=== PATIENT | male | born 1930 | race Caucasian/White ===

== ENCOUNTER 2018-12-13 23:38 | Inpatient (IN) ==
[2018-12-14 01:47] LABS: HEMOGLOBIN 13.2 g/dL (14.0-18.0); RBC 4.27 XMIL (4.7-6.1); WBC 13.63 X1000 (4.8-10.8)
[2018-12-14 01:48] LABS: BASO# 0.01 X1000 (0.0-0.2); BASO% 0.1 % (0.0-0.8); EOS# 0.09 X1000 (0.0-0.7); EOS% 0.7 % (0.0-10.0); HEMATOCRIT 40.4 % (42.0-52.0); IMM GRAN# 0.06 X1000 (0.0-0.04); IMM GRAN% 0.4 % (0.0-0.5); LYMPH# 0.72 X1000 (1.2-3.4); LYMPH% 5.3 % (20.5-51.1); MCH 30.9 PG (27-31); MCHC 32.7 g/dL (33-37); MCV 94.6 FL (81-99); MONO# 1.43 X1000 (0.11-0.59); MONO% 10.5 % (1.7-9.3); MPV 10.2 FL (7.4-10.4); NEUT# 11.32 X1000 (1.4-6.5); PLT 160 X1000 (130-400); RDW 14.5 % (11.5-14.5)
--- NOTE | 2018-12-14 02:11 | PROVIDER DOCUMENTATION ---
This chart was entered by Sherice Bridges Scribe, acting as scribe for Kalie Walker MD. HPI-General Adult - History of Present Illness -Gen Adult Nature of Presenting Problems: At recheck pt notes that he has had hx of hospitalizations due to uti's and weakness. <CjMiles Traylor. - Last Filed: 12/14/18 03:48> - General Source: patient - History of Present Illness -Gen Adult Nature of Presenting Problems: pt is a 88 yr old male presenting post fall via EMS. per pt had ambulated to bathroom with his walker, after using bathroom pt was trying to return to bedroom and was unable to ambulate further. pt reports his legs just wouldn't work and he sank to the floor, pt denies fall or injury. pt hx of myasthenia gravis, dementia. pt denies any complaints. family reports he was to weak to get up with there assistance Location of Pain/Injury: reports: none Pain Radiation: reports: no radiation Quality of Pain: reports: none Onset/Duration: reports: just prior to arrival Timing: reports: improving Context/Activities at Onset: reports: light activity Modifying Factors: improves with: nothing Associated Symptoms: reports: weakness, trouble walking. denies: arm pain, back/neck pain, chest pain, headaches, shortness of breath Similar Symptoms Previously?: Yes Recently seen or treated by another doctor?: No <Kalie Barrow - Last Filed: 12/14/18 14:01> - General Chief Complaint: Fall Stated Complaint: fall Time Seen by Provider: 12/14/18 00:10 Allergies/Adverse Reactions: Patient Allergies Allergy/AdvReac Type Severity Reaction Status Date / Time No Known Allergies Allergy Verified 12/14/18 06:28 Home Medications: Home Medication List Medication Instructions Recorded Confirmed Last Taken Type ATORVAstatin [Lipitor] 20 mg PO QHS #0 tablet 03/08/12 12/14/18 04/09/18 Rx Amitriptyline HCl 25 mg PO QHS 01/12/17 12/14/18 04/09/18 History Hydrochlorothiazide 25 mg PO DAILY 03/10/18 12/14/18 04/10/18 History Prednisone 10 mg PO DAILY tablet 03/14/18 12/14/18 04/10/18 Rx Pyridostigmine [Mestinon] 90 mg PO TID tablet 03/14/18 12/14/18 04/10/18 Rx Tolterodine Tartrate [Tolterodine 4 mg PO DAILY 12/14/18 12/14/18 Unknown History Tartrate ER] Review of Systems - Adult - REVIEW OF SYSTEMS - ADULT Constitutional: reports: fatique Eyes: reports: no symptoms reported Ears, Nose, Mouth & Throat: reports: no symptoms reported Cardiovascular: denies: chest pain, palpitations, syncope Respiratory: denies: dyspnea on exertion, shortness of breath Gastrointestinal: reports: no symptoms reported Genitourinary: reports: no symptoms reported Musculoskeletal: denies: bone pain, back pain, joint swelling, neck pain Integumentary: reports: no symptoms reported Neurological: denies: dizziness/vertigo, headache/migraines, syncope Psychiatric: reports: no symptoms reported Endocrine: reports: no symptoms reported Hematologic/Lymphatic: reports: no symptoms reported Allergic/Immunologic: reports: no symptoms reported All Other Systems: Reviewed and Negative <Kalie Barrow - Last Filed: 12/14/18 14:01> Past History - Adult - PAST MEDICAL HISTORY-ADULT Review of Records: reports: Old Records Reviewed, Nursing Assessment Review, Medications Reviewed, Social history reviewed & non-contributory. Major Childhood Illnesses: reports: denies history Cardiovascular: reports: HTN, hyperlipidemia, murmur Respiratory: reports: asthma Gastrointestinal: reports: GERD Obstetrical/Gynecological: reports: denies history Genitourinary: reports: denies history Musculoskeletal: reports: other (myasthenia gravis) Neurological: reports: dementia Psychiatric: reports: denies history Endocrine/Immune: reports: other (myasthenia gravis) Other Conditions: reports: denies history - PRIOR SURGERIES/PROCEDURES Surgical/Procedure History: reports: joint replacement - IMMUNIZATION STATUS Childhood Immunizations: See Nurse Assessment Flu Vaccine: See Nurse Assessment - FAMILY HISTORY Family History: reviewed, not pertinent - SOCIAL HISTORY Smoking: denies Substance Use: denies Living Situation: family <Kalie Barrow - Last Filed: 12/14/18 14:01> Physical Exam-General - CONSTITUTIONAL General Appearance: alert, no apparent distress - NECK Neck: non-tender, full range of motion, supple - RESPIRATORY Respiratory: lungs clear, normal breath sounds - GASTROINTESTINAL (ABDOMEN) Abdominal Exam: normal bowel sounds, non tender, soft - MUSCULOSKELETAL Back Exam: no CVA tenderness, no vertebral tenderness Extremity: normal range of motion, non-tender - NEUROLOGIC Neurologic: statistics manager II-XII nml as tested, motor weakness (+4/5 B/L LE), negative romberg's sign. negative: abnormal cerebellar tests, facial droop, focal weakness - PSYCHIATRIC Psych/Mental Status: other (oriented to place person but not to time.) <Kalie Barrow - Last Filed: 12/14/18 14:01> Progress - PLAN OF CARE/RESULTS Progress/Plan/Lab Results: Vital Signs - 8 hr 12/14/18 00:08 12/14/18 00:33 12/14/18 00:37 Temperature 102.4 F H Pulse Rate 99 H 90 Respiratory Rate 20 19 Blood Pressure 118/67 124/66 118/67 O2 Sat by Pulse Oximetry 95 94 L 95 12/14/18 01:03 12/14/18 01:32 Temperature 100.3 F H Pulse Rate 104 H 103 H Respiratory Rate 20 23 Blood Pressure 112/64 104/77 O2 Sat by Pulse Oximetry 95 95 Laboratory Results - last 24 hr 12/14/18 12/14/18 12/14/18 01:33 01:33 01:33 WBC 13.63 H RBC 4.27 L Hgb 13.2 L Hct 40.4 L MCV 94.6 MCH 30.9 MCHC 32.7 L RDW Std Deviation 14.5 Plt Count 160 MPV 10.2 Immature Gran % (Auto) 0.4 Neut % (Auto) 83.0 H Lymph % (Auto) 5.3 L [place] % (Auto) 10.5 H Eos % (Auto) 0.7 Baso % (Auto) 0.1 Immature Gran # (Auto) 0.06 H Neut # (Auto) 11.32 H Lymph # (Auto) 0.72 L [place] # (Auto) 1.43 H Eos # (Auto) 0.09 Baso # (Auto) 0.01 Sodium 143 Potassium 3.2 L Chloride 103 Carbon Dioxide 29 Anion Gap 11 BUN 18 Creatinine 1.3 H Estimated GFR/1.73 m2 52 BUN/Creatinine Ratio 14 Glucose 87 Calculated Osmolality 286 Calcium 8.8 Troponin T 0.047 Urine Source Urine Color Urine Turbidity Urine pH Ur Specific [place] Urine Protein Ur Glucose (Stick) Ur Ketones (Stick) Urine Blood Urine Nitrite Urine Bilirubin Urobilinogen Dipstick Urine Leukocytes Urine WBC (Auto) Urine RBC (Auto) U Epithel Cells (Auto) Urine Bacteria (Auto) Urine Crystals Small Round Cells Urine Casts Urine Yeast-like Cells 12/14/18 03:15 WBC RBC Hgb Hct MCV MCH MCHC RDW Std Deviation Plt Count MPV Immature Gran % (Auto) Neut % (Auto) Lymph % (Auto) [place] % (Auto) Eos % (Auto) Baso % (Auto) Immature Gran # (Auto) Neut # (Auto) Lymph # (Auto) [place] # (Auto) Eos # (Auto) Baso # (Auto) Sodium Potassium Chloride Carbon Dioxide Anion Gap BUN Creatinine Estimated GFR/1.73 m2 BUN/Creatinine Ratio Glucose Calculated Osmolality Calcium Troponin T Urine Source CATH Urine Color YELLOW Urine Turbidity HAZY Urine pH 6.5 Ur Specific [place] 1.018 Urine Protein 30 A Ur Glucose (Stick) NEGATIVE Ur Ketones (Stick) NEGATIVE Urine Blood SMALL A Urine Nitrite POSITIVE A Urine Bilirubin NEGATIVE Urobilinogen Dipstick NORMAL Urine Leukocytes LARGE A Urine WBC (Auto) TNTC A Urine RBC (Auto) <10 U Epithel Cells (Auto) <10 Urine Bacteria (Auto) 4+ Urine Crystals NONE SEEN Small Round Cells NONE SEEN Urine Casts NONE SEEN Urine Yeast-like Cells PRESENT Orders Category Date Time Status cxr [CHEST-PORTABLE] [RAD] Stat Exams 12/14/18 00:48 Taken BMP [BASIC METABOLIC PANEL] [CHEM] Stat Lab 12/14/18 01:33 Completed CBC WITH ELECTRONIC DIFF [HEME] Stat Lab 12/14/18 01:33 Completed TROPONIN T Stat Lab 12/14/18 01:33 Completed URINALYSIS [URINALYSIS] Stat Lab 12/14/18 03:15 Completed URINE MANUAL MICROSCOPIC [URINALYSIS] Stat Lab 12/14/18 03:15 Completed EKG [EKG] Stat Ther 12/14/18 00:47 Ordered Result Diagrams: 12/14/18 01:33 12/14/18 01:33 - CONSULTS/PCP/HOSPITALIST Notification #1 *Consult/PCP/Hospitalist*: Dr Dee Time Discussed: 03:49 Consult Disposition: Will see in ED, Admit <Miles Corona - Last Filed: 12/14/18 03:48> - PLAN OF CARE/RESULTS Result Diagrams: 12/14/18 01:33 12/14/18 01:33 - CHANGE OF SHIFT REPORT (ED Provider) 1 Report Given and Care Transferred to:: Dr. Miles Corona Time of Transfer: 02:10 Items Pending: Labs (Hx, PE and patient care discussed.) <Kalie Barrow - Last Filed: 12/14/18 14:01> Departure - Departure Date of Disposition Decision: 12/14/18 Time of Disposition Decision: 03:49 Certified Medical Emergency: Emergent - Critical Care Note This patient required my direct & personal management of CC.: No <Miles Corona - Last Filed: 12/14/18 03:48> <Kalie Barrow - Last Filed: 12/14/18 14:01> - Departure DIAGNOSIS: Weakness, UTI (urinary tract infection) Fall Qualifiers: Encounter type: initial encounter Qualified Code(s): W19.XXXA - Unspecified fall, initial encounter Disposition: ADMITTED INPATIENT 09 Condition: Fair Attestation - Physician/ MAYE Attestation Patient care was provided by Advanced Practice Provider:: No The physician spent face to face time with patient:: Yes Advanced Practice Provider documentation review:: Supervising physician onsite and consulted in the evaluation and care of this patient. The physician did have a face to face encounter with the patient. <Miles Corona - Last Filed: 12/14/18 03:48> - Physician/ MAYE Attestation Patient care was provided by Advanced Practice Provider:: No The physician spent face to face time with patient:: Yes Advanced Practice Provider documentation review:: Supervising physician onsite and consulted in the evaluation and care of this patient. The physician did have a face to face encounter with the patient. <Kalie Barrow - Last Filed: 12/14/18 14:01> This chart was documented by the indicated scribe, (Sherice Bridges Scribe) and accurately reflects the services I performed and decisions made by me, Kalie Walker MD, as attested by the provider's signature.
[2018-12-14 02:19] LABS: CALCIUM 8.8 mg/dL (8.8-10.2); CREATININE 1.3 mg/dL (0.7-1.2); POTASSIUM 3.2 mmol/L (3.5-5.1)
[2018-12-14 03:29] LABS: URINE SOURCE CATH
[2018-12-14 03:31] LABS: BILIRUBIN URINE NEGATIVE (NEGATIVE); BLOOD URINE SMALL (NEGATIVE); COLOR YELLOW; GLUCOSE URINE NEGATIVE (NEGATIVE); KETONE URINE NEGATIVE (NEGATIVE); LEUKOCYTES URINE LARGE (NEGATIVE); NITRITE URINE POSITIVE (NEGATIVE); PH URINE 6.5; PROTEIN URINE 30 mg/dL (NEGATIVE); SP GRAVITY URINE 1.018; TURBIDITY URINE HAZY (CLEAR); UROBILINOGEN URINE NORMAL (NORMAL)
[2018-12-14 03:34] LABS: UR EPITHELIAL CELLS <10 /HPF (<10); URINE BACTERIA 4+ /HPF; URINE CASTS NONE SEEN; URINE CRYSTALS NONE SEEN; URINE RBC <10 /HPF (<10); URINE SMALL ROUND CELLS NONE SEEN; URINE WBC TNTC /HPF (<10); URINE YEAST PRESENT
--- NOTE | 2018-12-14 08:38 | Diag Imaging Result Doc PS360 ---
EXAM: CHEST-PORTABLE INDICATION: Fall TECHNIQUE: One view COMPARISON: 04/10/2018 FINDINGS: Inspiration is suboptimal. There is suggestion of mild subsegmental atelectasis at the lung bases. The lungs are grossly clear, otherwise. There is no significant pleural fluid collection or pneumothorax identified. The cardiomediastinal silhouette and central vasculature are grossly unremarkable. IMPRESSION: Low lung volumes and mild bibasilar subsegmental atelectasis. No definite acute chest pathology by plain radiograph, otherwise. Electronically signed by Hiren Huerta 12/14/2018 8:35 AM
[2018-12-14] MEDS: NS 1,000 ML IV SCH ×2 (08:53→18:08)
[2018-12-14] MEDS: ROCEPHIN 1 GM in NS 50 ML IV SCH (08:53)
--- NOTE | 2018-12-14 11:47 | Diag Imaging Result Doc PS360 ---
EXAM: CT HEAD W/O CONTRAST INDICATION: encephalopathy TECHNIQUE: This exam was performed using automated exposure control, adjustment of mA or kV according to patient size, and/or use of iterative reconstruction technique. COMPARISON: 03/07/2012 FINDINGS: There is stable diffuse brain atrophy. There is a small focus of low attenuation associated with the superior thalamus on the left (image 22 of series 2). This could represent partial volume averaging from the adjacent ventricle. However, it is not clearly identified on the previous study. It may also represent a chronic lacunar infarct. However, a subacute infarct cannot completely be excluded. Please correlate clinically. There is no evidence of acute infarct, otherwise. There is no discrete intracranial mass, mass effect, or intracranial hemorrhage. There are a few small ethmoid sinus and left maxillary sinus mucus retention cyst. Surrounding soft tissues and bony structures are essentially unremarkable, otherwise. IMPRESSION: 1.Small hypodense focus at the superior aspect of the left thalamus. Please see above discussion. 2.Stable brain atrophy. Electronically signed by Hiren Huerta 12/14/2018 11:45 AM
--- NOTE | 2018-12-14 14:03 | HISTORY AND PHYSICAL ---
PRIMARY CARE PHYSICIAN: Dr. Miah Bedolla CHIEF COMPLAINT: Weakness, fall. HISTORY OF PRESENTING ILLNESS: An 88-year-old male with a history of myasthenia gravis,, hypertension hyperlipidemia and dementia, was brought to the emergency department due to patient having a fall. As per family members, he was getting weak and his legs gave out. The patient is a poor historian and most of the history is obtained from family members and previous records. At time of my examination, patient was able to deny any headache, fever, chills, chest pain, shortness of breath or any weight changes. PAST MEDICAL HISTORY: Includes myasthenia gravis, hypertension, hyperlipidemia and dementia. PAST SURGICAL HISTORY: Right knee surgery. ALLERGIES: No known drug allergies. CURRENT MEDICATIONS: Include amitriptyline 25 mg p.o. at bedtime, atorvastatin 20 mg p.o. at bedtime, hydrochlorothiazide 25 mg p.o. daily, omeprazole 40 mg p.o. daily, prednisone 10 mg p.o. daily. Mestinon 90 mg p.o. t.i.d. SOCIAL HISTORY: He smoked cigars in the past. No history of alcohol or illicit drug use. FAMILY HISTORY: No history of coronary disease. REVIEW OF SYSTEMS: Fourteen point review of system as listed in HPI. Other systems negative. PHYSICAL EXAMINATION: GENERAL: Cooperative, friendly male. He is resting comfortably now. VITAL SIGNS: Temperature of 102.4 degrees, pulse 90, respirations 19, blood pressure 118/67. HEENT: Atraumatic, normocephalic. Extraocular movements intact. PERRLA. NECK: No masses. CHEST: Clear to auscultation. CARDIOVASCULAR: Regular rate and rhythm. ABDOMEN: Soft,x positive bowel sounds. EXTREMITIES: No edema. NEUROLOGIC: He is awake, alert, oriented x1. GENITOURINARY: No bladder distention. SKIN: Warm. LABORATORIES AND STUDIES: WBC 13.63 hemoglobin 13.2, hematocrit 40.4, platelets 160,000. Sodium 143 potassium 3.2, chloride 103, CO2 is 29, BUN is 18, creatinine is 1.3, glucose is 87. UA shows large leukocytes and +4 bacteria. ASSESSMENT: An 88-year-old male with a history of myasthenia gravis, hypertension, dementia and hyperlipidemia was brought to the emergency department due to patient having a fall and worsening weakness. He was evaluated in the emergency department. Due to his presenting symptoms, we will place him for observation for further evaluation and management. 1. Status post fall. 2. Generalized weakness. 3 .Myasthenia gravis 3. Suspect a urinary tract infection. 4. Hypertension. PLAN: 1. We will admit patient to medical floor with telemetry. 2. We will continue with supportive treatment with physical therapy consult. 3. We will check urine cultures. Start patient on empiric antibiotics. 4. Monitor blood pressure closely. 5. Put patient on deep venous thrombosis prophylaxis with SCDs. 6. We will continue to follow and reassess and make further recommendations based on patient's clinical course. cc: MD Navjot Michele MD MTDD
[2018-12-14] MEDS: MESTINON PO SCH ×4 (15:59→21:32)
[2018-12-14] MEDS: PREDNISONE PO SCH (16:01)
--- NOTE | 2018-12-14 16:39 | PROGRESS NOTE ---
DATE: 12/14/2018 SUBJECTIVE: The patient's chart was reviewed. Unfortunately, history and physical has not been transcribed and history is limited from the patient secondary to mental status changes. I attempted to contact patient's , although no one answered the phone at her and her 's home. Per verbal report, patient apparently had a fall yesterday evening. The patient was seen in the emergency department. Full evaluation was pursued. White blood cell count was noted to be elevated at 13.63. Urinalysis returned with too many to count white blood cells and 4+ bacteria. The patient was admitted and placed on IV antibiotic intervention. This morning, CT scan of the head was performed which revealed a small hypodense focus at the superior aspect of the left thalamus possibly representing a new subacute stroke. Upon my arrival, patient was conversant but confused. He was aware of his surroundings but was unable to remember my name. His vital signs have been stable overnight. There has been no evidence of fevers, chills, nausea, vomiting, shortness of breath, or chest discomfort. OBJECTIVE: T-max 102.4 degrees, heart rate 82 to 107, respirations 16 to 22, blood pressure 89 to 133 over 63 to 75.General: Well nourished, well developed, no acute distress. Cardiovascular: Regular rate and rhythm. No significant murmurs, rubs, or gallops. Pulmonary: Clear to auscultation bilaterally. Abdomen: Soft, nontender, nondistended. Positive bowel sounds. Extremities: Moves all extremities well. No significant clubbing, cyanosis, or edema. Dermatologic: Evaluation reveals no evidence of rash. LABORATORY DATA: None since admission. ASSESSMENT AND PLAN: 1. Urinary tract infection with associated leukocytosis-patient's previous cultures have been positive for Pseudomonas. In April, this was sensitive to ceftazidime. The patient was started on IV ceftriaxone. We will continue this for now. We will follow up culture data. 2. Alteration of mental status/metabolic encephalopathy-this certainly could be secondary to his underlying urinary tract infection. The patient's CT scan, however, did demonstrate a possible subacute infarct. We will treat patient with IV antibiotics as noted. We will consider MRI of the brain depending on patient's progress. 3. Abnormal CT scan with a small hypodense focus at the superior aspect of the left thalamus-at this point, we are unable to confirm whether this represents a subacute infarct or volume averaging. We will follow patient clinically and determine if MRI evaluation is appropriate. 4. Hypertension-the patient's blood pressure was slightly low upon admission. We will hold any antihypertensive agents. We will follow this as well. 5. Hyperlipidemia-we will continue patient on atorvastatin therapy. 6. Myasthenia gravis-we will continue Mestinon and prednisone therapy as his symptoms are stable. 7. Disposition-at this point, patient continues to require care home care in a hospital setting. We will plan discharge home once appropriate. cc: Navjot Bedolla MD
[2018-12-14] MEDS: ELAVIL PO SCH (21:32)
[2018-12-14] MEDS: LIPITOR PO SCH (21:33)
[2018-12-15] MEDS: NS 1,000 ML IV SCH (04:02)
[2018-12-15] MEDS: PRILOSEC PO SCH (06:26)
[2018-12-15 06:42] LABS: BASO# 0.01 X1000 (0.0-0.2); BASO% 0.1 % (0.0-0.8); EOS% 1.7 % (0.0-10.0); HEMATOCRIT 39.7 % (42.0-52.0); HEMOGLOBIN 12.9 g/dL (14.0-18.0); IMM GRAN# 0.04 X1000 (0.0-0.04); IMM GRAN% 0.3 % (0.0-0.5); LYMPH# 0.98 X1000 (1.2-3.4); LYMPH% 8.3 % (20.5-51.1); MCH 31.3 PG (27-31); MCHC 32.5 g/dL (33-37); MCV 96.4 FL (81-99); MONO# 0.61 X1000 (0.11-0.59); MONO% 5.1 % (1.7-9.3); MPV 10.2 FL (7.4-10.4); NEUT# 10.01 X1000 (1.4-6.5); NEUT% 84.5 % (42.2-75.2); PLT 144 X1000 (130-400); RBC 4.12 XMIL (4.7-6.1); RDW 14.5 % (11.5-14.5); WBC 11.85 X1000 (4.8-10.8)
[2018-12-15 07:01] LABS: CALCIUM 8.8 mg/dL (8.8-10.2); CREATININE 1.3 mg/dL (0.7-1.2); POTASSIUM 3.9 mmol/L (3.5-5.1)
[2018-12-15] MEDS: ROCEPHIN 1 GM in NS 50 ML IV SCH (10:29)
[2018-12-15] MEDS: MESTINON PO SCH ×4 (10:31→21:58)
[2018-12-15] MEDS: PREDNISONE PO SCH (10:32)
[2018-12-15] MEDS: LOVENOX SUBQ SCH (15:40)
--- NOTE | 2018-12-15 21:21 | PROGRESS NOTE ---
DATE: 12/15/2018 SUBJECTIVE: Over the course of the last 24 hours, patient states he has done reasonably well. The patient has been working with physical therapy. His energy level is improving. His p.o. intake is adequate. He continues to have some confusion, although this has improved somewhat. There has been no evidence of fevers, chills, nausea, vomiting, shortness of breath, or chest discomfort. OBJECTIVE: T-max 102.4 degrees, heart rate 65 to 111, respirations 14 to 20. Blood pressure 96 to 159 over 60 to 101.General: No acute distress. Cardiovascular: Regular rate and rhythm. No significant murmurs, rubs, or gallops. Pulmonary: Clear to auscultation bilaterally. Abdomen: Soft, nontender, nondistended. Positive bowel sounds. Extremities: Moves all extremities well. No significant clubbing, cyanosis, or edema. Dermatologic: Evaluation reveals no evidence of rash. LABORATORY DATA: White blood cell count 11.85, hemoglobin 12.9, hematocrit 39.7, platelet count 144,000, sodium 143, potassium 3.9, chloride 108, bicarb 24, BUN 20, creatinine 1.3, glucose 92. ASSESSMENT AND PLAN: 1. Urinary tract infection with associated leukocytosis-we will continue patient on Rocephin therapy. We will culture urine. 2. Alteration of mental status/metabolic encephalopathy-this likely was a consequence of his urinary tract infection. CT scan of the head, however, demonstrated possible subacute infarct. We will continue to treat patient aggressively as described above. Should his condition not completely resolve, we will consider an MRI of the brain. 3. Abnormal CT scan with small hyperdense focus in the superior aspect of the left thalamus-as above, question is raised whether this is a true abnormality or if this is volume averaging. We will consider an MRI as noted. 4. Hypertension-we will continue patient on his home regimen. 5. Hyperlipidemia-we will continue atorvastatin therapy. 6. Myasthenia gravis-we will continue patient on Mestinon and prednisone therapy. 7. Disposition-at this point, patient continues to require [facility] care in a hospital setting. We will plan discharge home once appropriate. cc: Navjot Bedolla MD
[2018-12-15] MEDS: LIPITOR PO SCH (21:59)
[2018-12-15] MEDS: ELAVIL PO SCH (21:59)
[2018-12-16 06:13] LABS: BASO# 0.01 X1000 (0.0-0.2); BASO% 0.1 % (0.0-0.8); EOS% 3.6 % (0.0-10.0); HEMATOCRIT 40.1 % (42.0-52.0); IMM GRAN# 0.06 X1000 (0.0-0.04); IMM GRAN% 0.7 % (0.0-0.5); LYMPH# 0.76 X1000 (1.2-3.4); LYMPH% 9.1 % (20.5-51.1); MCH 31.3 PG (27-31); MCHC 32.4 g/dL (33-37); MCV 96.4 FL (81-99); MONO# 0.62 X1000 (0.11-0.59); MONO% 7.4 % (1.7-9.3); NEUT% 79.1 % (42.2-75.2); PLT 159 X1000 (130-400); RBC 4.16 XMIL (4.7-6.1); RDW 14.4 % (11.5-14.5); WBC 8.35 X1000 (4.8-10.8)
[2018-12-16] MEDS: PRILOSEC PO SCH (06:32)
[2018-12-16] MEDS: MESTINON PO SCH ×4 (09:00→20:03)
[2018-12-16] MEDS: ROCEPHIN 1 GM in NS 50 ML IV SCH (09:00)
[2018-12-16] MEDS: PREDNISONE PO SCH (09:01)
--- NOTE | 2018-12-16 10:43 | Diag Imaging Result Doc PS360 ---
MRI BRAIN W/WO CONTRAST - 12/16/2018 INDICATION: abnormal CT brain/ AMS COMPARISON: Head CT 12/14/2018, brain MRI 01/15/2013 FINDINGS: There is no area of restricted diffusion. There is a dilated perivascular space of the left basal ganglia stable from prior exams. There is advanced diffuse cerebral atrophy similar to prior. No intracranial mass or hemorrhage. No abnormal contrast enhancement. There is very little chronic microvascular disease. IMPRESSION: Advanced cerebral atrophy. No acute process. Electronically signed by Elian Cleveland 12/16/2018 10:40 AM
[2018-12-16] MEDS: LOVENOX SUBQ SCH (15:38)
[2018-12-16] MEDS: LIPITOR PO SCH (20:01)
[2018-12-16] MEDS: ELAVIL PO SCH (20:02)
--- NOTE | 2018-12-16 21:30 | PROGRESS NOTE ---
DATE: 12/16/2018 SUBJECTIVE: The patient was originally seen this morning. At that time, he was resting in bed. Through the day today, patient states he has done well. His appetite is excellent. The energy level is slowly improving. He continues to work with physical therapy. His confusion has not resolved, but is improving. He denies fevers, chills, nausea, vomiting, shortness of breath, or chest discomfort. OBJECTIVE: Vital Signs: T-max 98.2 degrees, heart rate 52 to 92, respirations 16 to 18, blood pressure 119 to 152 over 63 to 116. General: No acute distress. Cardiovascular: Regular rate and rhythm. No significant murmurs, rubs, or gallops. Pulmonary: Clear to auscultation bilaterally. Abdomen: Soft, nontender, nondistended. Positive bowel sounds. Extremities: Moves all extremities well. No significant clubbing or cyanosis. 1+ lower extremity edema bilaterally. Dermatologic: Evaluation reveals no evidence of rash. LABORATORY DATA: White blood cell count 8.35, hemoglobin 14.3, hematocrit 40.1, platelet count 159,000. MRI of the brain revealed advanced cerebral atrophy. No acute process. ASSESSMENT AND PLAN: 1. Urinary tract infection, with associated leukocytosis: Patient's leukocytosis has resolved. Urine culture, thus far, suggests a gram-negative milagros. For now, we will continue Rocephin therapy as it appears patient is clinically improved. We will follow up culture data and determine when transition to oral antibiotic intervention is appropriate. 2. Alteration of mental status/metabolic encephalopathy: This likely is a consequence of his urinary tract infection. As above, MRI did not confirm an acute stroke as suggested by CT scan. We will continue treatment as noted. 3. Hypertension: Patient's blood pressure is reasonably controlled on his home regimen. 4. Hyperlipidemia: We will continue atorvastatin therapy. 5. Myasthenia gravis: We will continue Mestinon and prednisone therapy. Symptoms are stable. 6. Disposition: At this point, patient continues to require [facility] care in a hospital setting. We will plan discharge home once appropriate. cc: Navjot Bedolla MD
[2018-12-17] MEDS: ROCEPHIN 1 GM in NS 50 ML IV SCH (06:29)
[2018-12-17] MEDS: PRILOSEC PO SCH (06:29)
[2018-12-17] MEDS: MESTINON PO SCH ×3 (08:39→22:12)
[2018-12-17] MEDS: PREDNISONE PO SCH (08:39)
[2018-12-17] MEDS: LOVENOX SUBQ SCH (12:42)
--- NOTE | 2018-12-17 21:12 | PROGRESS NOTE ---
DATE: 12/17/2018 SUBJECTIVE: Upon my arrival this morning, patient was resting in bed. Overnight, he denied significant symptoms. Throughout the day today, the patient has demonstrated significant improvement in his overall condition. The patient ambulated with physical therapy. I have asked social sciences department chair discuss case with patient's . Home health versus rehabilitation were considered. Upon my arrival this evening, patient's states he has done so well, she would like to consider taking home tomorrow. The patient states he is feeling well and denies fevers, chills, nausea, vomiting, shortness of breath, or chest discomfort. OBJECTIVE: T-max 98.5 degrees, heart rate 57 to 82, respirations 18 to 24, blood pressure 123 to 174 over 63 to 89.General: No acute distress. Cardiovascular: Regular rate and rhythm. No significant murmurs, rubs, or gallops. Pulmonary: Clear to auscultation bilaterally. Abdomen: Soft, nontender, nondistended. Positive bowel sounds. Extremities: Moves all extremities well. No significant clubbing, cyanosis, 1+ lower extremity edema bilaterally. Dermatologic: Evaluation reveals no evidence of rash. LABORATORY DATA: None. ASSESSMENT/PLAN: 1. Urinary tract infection with associated leukocytosis-urine culture ultimately grew Escherichia coli. We will continue Rocephin therapy until discharge. We will transition patient to oral antibiotics for a total of 2 weeks. We will follow this closely as an outpatient. 2. Alteration of mental status/metabolic encephalopathy-this likely is a consequence of his urinary tract infection. MRI suggested diffuse cerebral atrophy but no acute disease. We will continue supportive care for now. 3. Hypertension-patient's blood pressure is controlled on his current regimen. 4. Hyperlipidemia-we will continue patient on atorvastatin therapy. 5. Myasthenia gravis-symptoms are reasonably controlled with Mestinon and prednisone therapy. 6. Disposition-at this point, patient continues to require residential care in a hospital setting. We will plan discharge home once appropriate. cc: Navjot Bedolla MD
[2018-12-17] MEDS: LIPITOR PO SCH (22:12)
[2018-12-17] MEDS: ELAVIL PO SCH (22:13)
[2018-12-17] MEDS ORDERED: DUONEB (A & A) INH ONE (23:08)
[2018-12-18] MEDS: LOVENOX SUBQ SCH ×2 (04:46→14:34)
[2018-12-18] MEDS ORDERED: DUONEB (A & A) INH SCH (07:50)
[2018-12-18] MEDS: DUONEB (A & A) INH SCH ×4 (08:02→19:22)
--- NOTE | 2018-12-18 08:34 | Diag Imaging Result Doc PS360 ---
EXAM: CHEST-2 VIEWS 12/18/2018 HISTORY: wheezing TECHNIQUE: PA and lateral chest COMMENT: The inspiration is better than on 12/14/2018. There is some questionable platelike atelectasis over the lung bases but otherwise lungs are clear. The appearance of the chest has not changed appreciably since 04/10/2018. IMPRESSION: Questionable atelectasis. Stable chest. Electronically signed by Paul Hong 12/18/2018 8:32 AM
[2018-12-18] MEDS: MESTINON PO SCH ×5 (08:47→22:04)
[2018-12-18] MEDS: PREDNISONE PO SCH (08:47)
[2018-12-18] MEDS: PRILOSEC PO SCH (08:48)
[2018-12-18] MEDS: LEVAQUIN PO SCH (12:14)
--- NOTE | 2018-12-18 19:26 | PROGRESS NOTE ---
DATE: 12/18/2018 SUBJECTIVE: Upon my arrival this morning, the patient was noted to have considerable wheezing. The patient was started on bronchodilators. Throughout the day today, the patient did reasonably well with the exception of persistent wheezing. Chest x-ray suggested atelectasis, but no evidence of pneumonia. This evening, unfortunately, patient continues to have wheezing despite DuoNeb. He denies fevers, chills, nausea, or vomiting. He denies overt shortness of breath at present time. He does note that the wheezing began after taking pills yesterday evening. OBJECTIVE: Vital signs: T-max 98.5 degrees, heart rate 65 to 70, respirations 18 to 22, blood pressure 113 to 153 over 65 to 105. General: Elderly. No acute distress. Cardiovascular: Regular rate and rhythm. No significant murmurs, rubs, or gallops. Pulmonary: Wheezing bilaterally. Adequate air movement. Abdomen: Soft, nontender, nondistended. Positive bowel sounds. Extremities: Moves all extremities well. No significant clubbing, cyanosis, or edema. Dermatologic: Evaluation reveals no evidence of rash. LABORATORY DATA: None. Chest x-ray reveals questionable atelectasis. Stable chest. ASSESSMENT AND PLAN: 1. Urinary tract infection with associated leukocytosis - As described previously, urine culture grew Escherichia coli. The patient's IV infiltrated today. We will transition patient to levofloxacin today as this will also cover for pulmonary pathogens. We will continue to follow his clinical course closely. 2. Acute bronchospasm - This likely is secondary to aspiration/aspiration pneumonitis. We will continue bronchodilators for now. Should his condition continue, we will consider increasing his steroid intervention. 3. Alteration of mental status/metabolic encephalopathy - This likely was a consequence of the urinary tract infection. His mentation is approaching baseline. We will continue to encourage activity. 4. Hypertension - The patient's blood pressure is controlled on his current regimen. 5. Hyperlipidemia - We will continue patient on atorvastatin therapy. 6. Myasthenia gravis - The patient's symptoms are reasonably controlled with Mestinon and prednisone therapy. 7. Disposition - I anticipated discharge today to home. Unfortunately, this was not successful. With the increased bronchospasm, the question is raised whether he will drive at home or whether he will need rehabilitation. We will reassess this in the morning and determine intervention at that time. cc: Navjot Bedolla MD
[2018-12-18] MEDS: LIPITOR PO SCH (22:04)
[2018-12-18] MEDS: ELAVIL PO SCH (22:04)
[2018-12-19] MEDS: DUONEB (A & A) INH SCH ×4 (02:05→11:22)
[2018-12-19] MEDS: PRILOSEC PO SCH (06:19)
[2018-12-19 06:34] LABS: BASO# 0.04 X1000 (0.0-0.2); BASO% 0.5 % (0.0-0.8); EOS# 0.47 X1000 (0.0-0.7); EOS% 5.7 % (0.0-10.0); HEMATOCRIT 38.8 % (42.0-52.0); HEMOGLOBIN 12.4 g/dL (14.0-18.0); IMM GRAN# 0.24 X1000 (0.0-0.04); IMM GRAN% 2.9 % (0.0-0.5); LYMPH# 1.07 X1000 (1.2-3.4); MCH 31.2 PG (27-31); MCV 97.7 FL (81-99); MONO# 0.87 X1000 (0.11-0.59); MONO% 10.6 % (1.7-9.3); MPV 10.2 FL (7.4-10.4); NEUT# 5.51 X1000 (1.4-6.5); NEUT% 67.3 % (42.2-75.2); PLT 154 X1000 (130-400); RBC 3.97 XMIL (4.7-6.1); RDW 14.4 % (11.5-14.5)
[2018-12-19 06:54] LABS: ALB/GLOB RATIO 1.1; CALCIUM 8.8 mg/dL (8.8-10.2); CREATININE 1.2 mg/dL (0.7-1.2); POTASSIUM 3.9 mmol/L (3.5-5.1); TOTAL BILIRUBIN 0.35 mg/dL (0.20-1.00); TOTAL PROTEIN 5.8 g/dL (6.3-8.3)
[2018-12-19] MEDS: LEVAQUIN PO SCH (08:16)
[2018-12-19] MEDS: PREDNISONE PO SCH (08:16)
[2018-12-19] MEDS: MESTINON PO SCH ×2 (08:17→08:19)
[2018-12-19 11:26] VITALS: BP 138/78
--- NOTE | 2018-12-20 20:19 | Carotid Study ---
DATE: 12/15/2018 PROCEDURE: Carotid duplex imaging. REFERRING PHYSICIAN: Navjot Bedolla MD. INTERPRETING PHYSICIAN: Virgil Springer MD. TECH: [employer]. INDICATIONS: Altered mental status, possible stroke. FINDINGS: There is a small amount of plaque in the left mid internal carotid artery. Otherwise the carotid systems show normal flow without turbulence and without significant elevation of velocities. There is antegrade vertebral flow bilaterally. OBSERVED DATA RIGHT LEFT Brachial Blood Pressure Carotid Pulse Bruits: Carotid/Sub DIAGRAM OF ULTRASOUND IMAGING R L RIGHT INT EXT INT EXT LEFT Rudy (cm/s) Rudy (cm/s) Subclavian 90/01 Subclavian 115/0 CCA Proximal 79/16 CCA Proximal 54/10 CCA Distal 62/12 CCA Distal 68/13 Bulb 64/14 Bulb 55/9 ICA Proximal 64/15 ICA Proximal 56/12 ICA Mid 50/17 ICA Mid 75/23 ICA Distal 50/21 ICA Distal 63/20 ECA 50/4 ECA 74/4 Vertebral 54/9 Vertebral 43/12 ICA/CCA Ratio 0.8 ICA/CCA Ratio 1.1 % Stenosis 0-39% % Stenosis 0-39% PHYSICIAN INTERPRETATION: Mild plaque disease as described above, which is not hemodynamically significant. There is antegrade vertebral flow bilaterally. cc: MD Navjot Nascimento MD
--- NOTE | 2018-12-20 21:21 | DISCHARGE SUMMARY ---
ADMISSION DATE: 12/16/2018 DISCHARGE DATE: 12/19/2018 ADMISSION DIAGNOSES: 1. Weakness. 2. Fall. DISCHARGE DIAGNOSES: 1. Urinary tract infection with associated leukocytosis, improving. 2. Alteration of mental status/metabolic encephalopathy. 3. Hypertension, present on arrival. 4. Hyperlipidemia, present on arrival. 5. Myasthenia gravis, present on arrival. 6. Profound weakness. CONSULTATIONS: None. PROCEDURES: 1. CT scan of the head was performed on 12/14/2018, which revealed a small hypodense focus at the superior aspect of the left thalamus. Stable brain atrophy. 2. MRI of the brain was performed on 12/16/2018, which revealed advanced cerebral atrophy. No acute process. 3. Chest x-ray was performed on 12/18/2018, which revealed questionable atelectasis. Stable chest. HISTORY AND PHYSICAL EXAMINATION: See admit note. Physical examination prior to discharge: Temperature 97.9 degrees, heart rate 74, respirations 20, blood pressure is 138/78. General: Well nourished, well developed, no acute distress. Cardiovascular: Regular rate and rhythm. No significant murmurs, rubs, or gallops. Pulmonary: Clear to auscultation bilaterally. Abdomen: Soft, nontender, nondistended. Positive bowel sounds. Extremities: Moves all extremities well. No significant clubbing or cyanosis. Lower extremity edema 1+ bilaterally. Dermatologic: No evidence of rash. LABORATORY DATA: White blood cell count 8.20, hemoglobin 12.4, hematocrit 38.8, platelet count 154,000. Sodium 140, potassium 3.9, chloride 108, bicarbonate 20, BUN 15, creatinine 1.2, glucose 72, calcium 8.8. Total bilirubin 0.35, total protein 5.8, albumin 3.0, alkaline phosphatase 73, AST 19, ALT 18. HOSPITAL COURSE: Patient was admitted as per history and physical examination. Hospital course per condition is as follows. 1. Urinary tract infection with associated leukocytosis. Upon admission, patient was noted to have a considerable local leukocytosis at 13.63. The patient was immediately placed on Rocephin therapy. Patient tolerated this quite well. Ultimately, the patient's urine culture grew Escherichia coli. At time of discharge, patient will be transitioned to Keflex twice daily for the next 10 days. We will follow his clinical course very closely. 2. Acute bronchospasm. On the day prior to discharge, patient complained of considerable bronchospasm. This began after taking pills. This would likely suggest that patient did have an aspiration event. With supportive care and bronchodilators, he achieved improvement. At the time of discharge, pulmonary status was at baseline. 3. Alteration of mental status/metabolic encephalopathy. This likely is a consequence of his underlying urinary tract infection. With treatment, patient's mentation is approaching baseline. 4. Hypertension. The patient's blood pressure has remained adequately controlled while hospitalized. We will continue his current regimen. 5. Hyperlipidemia. Patient was continued on atorvastatin therapy. We will follow this up as an outpatient. 6. Myasthenia gravis. Patient's symptoms remained stable with Mestinon and prednisone therapy. 7. Profound weakness. The patient has achieved improvement with physical therapy while hospitalized. We will transition to home health and physical therapy at discharge. DISCHARGE CONDITION: Stable. DISPOSITION: Discharge to home. MEDICATIONS: 1. Keflex 500 mg twice daily for 10 days. 2. Mestinon 90 mg 3 times daily and 60 mg at bedtime. 3. Omeprazole 40 mg daily. 4. ProAir HFA 1 to 2 puffs every 4 to 6 hours as needed. 5. Atorvastatin 20 mg at bedtime. 6. Amitriptyline 25 mg at bedtime. 7. Hydrochlorothiazide 25 mg daily. 8. Prednisone 10 mg daily. FOLLOWUP: The patient is to follow up with me in approximately 1 to 2 weeks. cc: Navjot Bedolla MD MTDD
== END 2018-12-19 12:30 | disposition home health service (06) | DRG 689 ==
LOC: SUPCPDRO → 4N 23:38 → ED 23:38 → SUATTDRO 12-14 05:41
PROVIDERS: ADMIT Internal Medicine; ATTEND Internal Medicine